=== PATIENT | female | born 1985 | race African-American/Black ===

== ENCOUNTER 2019-09-11 15:05 | Emergency (ER) | payer SELFPAY ==
[~2019-09-11] VITALS: Ht 165.1 cm; Wt 65.3 kg
--- OUTSIDE RECORDS SUMMARY | 2019-09-11 15:07 | XMS REPORT ---
Author Author [facility] Address Unknown Phone Unavailable Care Team Providers Care Clerical Secretary Name Role Phone NEDA MARTI Unavailable Unavailable NAOMISAVANNAH Unavailable Unavailable Problems This patient has no known problems. Allergies, Adverse Reactions, Alerts This patient has no known allergies or adverse reactions. Medications This patient has no known medications. Encounters Start Date/Time End Date/Time Encounter Type Admission Type Attending Clinicians Care Facility Care Department Encounter ID 2019-05-02 11:10:00 2019-05-02 11:10:00 Emergency E [id number] Results Test Description Test Time Test Comments Text Results Atomic Results Result Comments CT, ABDOMEN 2019-03-21 15:39:00 Reason for exam:->EMESISIs the patient ?- >UnknownWhat is the patient's sedation requirement?->No Sedation FINAL REPORT CT abdomen and pelvis with contrast History: abdominal pain Comparison: none Technique: serial axial imaging was performed following up to 100cc of non ionic iodinated intravenous contrast as per departmental protocol. Multiplanar images are reconstructed and reviewed when indicated. This CT examination is performed using one or more of the following dose reduction techniques: Automated exposure control, adjustment of the mA and /or kV according to patient size, and/or use of iterative reconstruction technique. Findings: 5 mm right lower lobe pulmonary nodule is noted. Unremarkable appearance of pancreas and spleen. A 6 mm cyst is seen within the posterior right hepatic lobe. The liver and gallbladder are otherwise unremarkable. Unremarkable appearance of adrenal glands, kidneys, ureters, and urinary bladder. . No small or large bowel obstruction. No apparent bowel wall thickening. Nonvisualized appendix, without secondary findings of acute appen dicitis. Nonspecific mild free fluid within the pelvis. No abdominal aortic aneurysm. No aggressive osseous lesion. Impression: 1. Nonspecific mild free fluid within the pelvis.2. Nonvisualized appendix, without secondary findings of acute appendicitis.3. 5 mm right lower lobe pulmonary nodule. In a low risk patient, this requires no further follow-up. Otherwise, consider 12 month follow-up CT scan of the chest. Signed: Sis Aguirre MDReport Verified Date/Time: 03/21/2019 15:39:51 Reading Location: [facility] Radiology Reading Room ALYSIS W/ REFLEX URINE CULTURE 2019-03-21 14:43:00 COLOR (BEAKER) (test bpql=253) Yellow CLARITY (BEAKER) (test wftc=048) Clear SPECIFIC GRAVITY UA (BEAKER) (test uaaj=283) 1.015 1.001-1.035 PH UA (BEAKER) (test pqut=428) 9.0 5.0-8.0 PROTEIN UA (BEAKER) (test bpjn=669) 30 mg/dL Negative GLUCOSE UA (BEAKER) (test bygz=677) Negative Negative KETONES UA (BEAKER) (test yonb=491) 60 mg/dL Negative BILIRUBIN UA (BEAKER) (test rnur=850) Negative Negative BLOOD UA (BEAKER) (test cmdq=959) Negative Negative NITRITE UA (BEAKER) (test tidn=141) Negative Negative LEUKOCYTE ESTERASE UA (BEAKER) (test ocsz=610) Negative Negative UROBILINOGEN UA (BEAKER) (test seot=474) 0.2 mg/dL 0.2-1.0 RBC UA (BEAKER) (test ylaa=527) 1 /HPF WBC UA (BEAKER) (test oxrc=205) 15 /HPF SQUAMOUS EPITHELIAL (BEAKER) (test hqkb=863) 8 /HPF AMORPHOUS CRYSTALS (BEAKER) (test akvd=7821) Rare SOURCE(BEAKER) (test vjch=2584) SCREEN, [id number] 14:38:00* Test Item Value Reference Range Comments TEST URINE (BEAKER) (test mfjz=242) Negative [id number] 13:15:00* Test Item Value Reference Range Comments LIPASE (BEAKER) (test eytx=062) 41 U/L 8-78 BASIC METABOLIC [id number] 13:15:00* Test Item Value Reference Range Comments SODIUM (BEAKER) (test lvsm=987) 137 meq/L 136-145 POTASSIUM (BEAKER) (test qggy=720) 3.6 meq/L 3.5-5.1 CHLORIDE (BEAKER) (test hkra=375) 106 meq/L 98-107 CO2 (BEAKER) (test veva=212) 22 meq/L 22-29 BLOOD UREA NITROGEN (BEAKER) (test onqu=835) 11 mg/dL 7-21 CREATININE (BEAKER) (test fjot=015) 0.80 mg/dL 0.57-1.25 GLUCOSE RANDOM (BEAKER) (test rjyl=721) 97 mg/dL 70-105 CALCIUM (BEAKER) (test qwyw=122) 8.9 mg/dL 8.4-10.2 EGFR (BEAKER) (test edcn=2475) 101 mL/min/1.73 sq m ESTIMATED GFR IS NOT ACCURATE CREATININE CLEARANCE IN PREDICTING GLOMERULAR FILTRATION RATE. ESTIMATED GFR IS NOT APPLICABLE FOR DIALYSIS PATIENTS. HEPATIC FUNCTION [id number] 13:15:00* Test Item Value Reference Range Comments TOTAL PROTEIN (BEAKER) (test jevt=461) 6.6 gm/dL 6.0-8.3 ALBUMIN (BEAKER) (test owcq=4503) 3.9 g/dL 3.5-5.0 BILIRUBIN TOTAL (BEAKER) (test pjfz=063) 0.5 mg/dL 0.2-1.2 BILIRUBIN DIRECT (BEAKER) (test mbne=956) 0.2 mg/dL 0.1-0.5 ALKALINE PHOSPHATASE (BEAKER) (test crzf=129) 41 U/L 40-150 AST (SGOT) (BEAKER) (test mopd=019) 23 U/L 5-34 ALT (SGPT) (BEAKER) (test gvhb=526) 20 U/L 6-55 CBC W/PLT COUNT & AUTO [id number] 12:51:00* Test Item Value Reference Range Comments WHITE BLOOD CELL COUNT (BEAKER) (test lkuu=657) 10.4 K/ L 3.5-10.5 RED BLOOD CELL COUNT (BEAKER) (test fsoa=636) 4.94 M/ L 3.93-5.22 HEMOGLOBIN (BEAKER) (test otyl=788) 14.2 GM/DL 11.2-15.7 HEMATOCRIT (BEAKER) (test xqng=895) 43.6 % 34.1-44.9 MEAN CORPUSCULAR VOLUME (BEAKER) (test vgxn=380) 88.3 fL 79.4-94.8 MEAN CORPUSCULAR HEMOGLOBIN (BEAKER) (test wggg=926) 28.7 pg 25.6-32.2 MEAN CORPUSCULAR HEMOGLOBIN CONC (BEAKER) (test efnu=009) 32.6 GM/DL 32.2-35.5 RED CELL DISTRIBUTION WIDTH (BEAKER) (test tcao=153) 13.5 % 11.7-14.4 PLATELET COUNT (BEAKER) (test ftji=389) 283 K/CU MM 150-450 MEAN PLATELET VOLUME (BEAKER) (test wuow=679) 10.0 fL 9.4-12.3 NUCLEATED RED BLOOD CELLS (BEAKER) (test rtpg=435) 0 /100 WBC 0-0 NEUTROPHILS RELATIVE PERCENT (BEAKER) (test ltaw=384) 59 % LYMPHOCYTES RELATIVE PERCENT (BEAKER) (test xojt=640) 32 % MONOCYTES RELATIVE PERCENT (BEAKER) (test jqpa=036) 5 % EOSINOPHILS RELATIVE PERCENT (BEAKER) (test znex=560) 3 % BASOPHILS RELATIVE PERCENT (BEAKER) (test ujez=118) 1 % NEUTROPHILS ABSOLUTE COUNT (BEAKER) (test fwjt=627) 6.15 K/ L 1.56-6.13 LYMPHOCYTES ABSOLUTE COUNT (BEAKER) (test lhyx=975) 3.28 K/ L 1.18-3.74 MONOCYTES ABSOLUTE COUNT (BEAKER) (test tymt=906) 0.53 K/ L 0.24-0.36 EOSINOPHILS ABSOLUTE COUNT (BEAKER) (test pnuq=936) 0.27 K/ L 0.04-0.36 BASOPHILS ABSOLUTE COUNT (BEAKER) (test uvxz=146) 0.09 K/ L 0.01-0.08 IMMATURE GRANULOCYTES-RELATIVE PERCENT (BEAKER) (test romy=5111) 0 % 0-1 URINALYSIS W/ REFLEX URINE [id number] 09:45:00* Test Item Value Reference Range Comments COLOR (BEAKER) (test rvdf=957) Yellow CLARITY (BEAKER) (test kaql=508) Hazy SPECIFIC GRAVITY UA (BEAKER) (test ambq=016) 1.028 1.001-1.035 PH UA (BEAKER) (test flqa=150) 6.0 5.0-8.0 PROTEIN UA (BEAKER) (test omol=127) 50 mg/dL Negative GLUCOSE UA (BEAKER) (test huem=660) Negative Negative KETONES UA (BEAKER) (test ckjq=415) >150 mg/dL Negative BILIRUBIN UA (BEAKER) (test frli=556) Negative Negative BLOOD UA (BEAKER) (test kqnl=779) Large Negative NITRITE UA (BEAKER) (test mwrb=967) Negative Negative LEUKOCYTE ESTERASE UA (BEAKER) (test qngq=957) Trace Negative UROBILINOGEN UA (BEAKER) (test oamr=597) 2.0 mg/dL 0.2-1.0 RBC UA (BEAKER) (test kfmm=702) 8 /HPF WBC UA (BEAKER) (test lhys=071) 3 /HPF MUCUS (BEAKER) (test dwky=8308) Moderate SQUAMOUS EPITHELIAL (BEAKER) (test koad=669) 9 /HPF SOURCE(BEAKER) (test nrcl=7906) SCREEN, [id number] 09:44:00* Test Item Value Reference Range Comments TEST URINE (BEAKER) (test yybl=500) Negative
== END 2019-09-11 15:23 | disposition home or self-care (01) ==
LOC: ER 15:05
DX: L02.01 Cutaneous abscess of face (principal); F17.210 Nicotine dependence, cigarettes, uncomplicated
CPT/HCPCS: 99283